=== PATIENT | male | born 1950 ===

== ENCOUNTER 2018-08-07 06:39 | Inpatient (IN) | payer OTHER, MEDICARE ==
--- NOTE | 2018-08-01 12:38 | GHP ---
DATE OF ADMISSION: 08/07/2018 DATE OF SURGERY: He will be an a.m. admission for surgery at [facility] on August 07, 2018. PROBLEM: Left hip arthritis. HISTORY OF PRESENT ILLNESS: The patient is a 68-year-old man admitted for a left total hip arthropla sty. He lives in [place], [place]. His left hip has been painful for the last couple of years. He occasionally has pain in the right hip. His activities are limited. He likes to ride a horse and h as not been able to do that in the past year. He occasionally uses ibuprofen. He has trouble puttin g on his shoes and socks on the left foot. He has had chiropractic treatments. He has not had any c ortisone injections. His evaluation shows severe degenerative arthritis of the left hip. He is admi tted for a left total hip arthroplasty. His activities and function are significantly limited. PAST MEDICAL HISTORY: Excellent general health. He takes allopurinol for gout. No history of heart disease, stents, DVT, hepatitis, MRSA staph infections, sleep apnea or bleeding problems. CURRENT MEDICATIONS: Allopurinol 100 mg per day. A Viagra like medication on a p.r.n. basis. ALLERGIES: Drug allergies: None. Metal allergy: None. Latex allergy: None. SOCIAL HISTORY: The patient is . He is retired. He does not smoke cigarettes and occasional ly drinks alcohol. He is in the process of moving from [place], [place] to [place]. FAMILY HISTORY: Noncontributory. PHYSICAL EXAMINATION: VITAL SIGNS: Height 6 feet 1 inch. Weight 170 pounds. BMI 22.4. EYES: Con junctivae and sclerae are clear. Pupils are round and reactive. MOUTH: Good oral hygiene. No loos e teeth. CHEST: Clear. HEART: Regular rhythm, no murmurs. EXTREMITIES: Pertinent findings limit ed to his left hip. He has full hip extension and 110 degrees of flexion. External rotation 30 degr ees. Internal rotation 0 degrees. Abduction 30 degrees. IMAGING: His films show advanced degenerative arthritis of the left hip. He has marked cartilage sp mine narrowing and subchondral sclerosis. IMPRESSION ON ADMISSION: 1. Left hip degenerative arthritis. 2. Treatment for gout. PLAN: He will undergo a left total hip arthroplasty. The surgery has been described to him, lyn monsalve the risks, complications, expectations, and recovery time. I have talked with him specifically ab out the risk of dislocation, leg length inequality, infection, and sciatic nerve injury. All his que stions have been answered, and he consents to surgery. /[id number]/MODL
[2018-08-07] MEDS ORDERED: POVIDONE-IODINE 20 ML in SODIUM CL IRRIG SOLUTION 500 ML IRR ONE (07:00)
[2018-08-07] MEDS ORDERED: TRANEXAMIC ACID 1,000 MG in NS 100 ML IV ONE (07:00)
[2018-08-07] MEDS ORDERED: ROPIVACAINE 0.2% 80 MG, EPINEPHrine 0.2 MG, KETOROLAC TROMETHAMINE 30 MG in SYRINGE 0 ML IU ONE (07:00)
[2018-08-07] MEDS ORDERED: TRANEXAMIC ACID 3,000 MG in NS (SYRINGE) 50 ML IRR ONE (07:00)
[2018-08-07] MEDS ORDERED: GABAPENTIN 300 MG CAP PO ONE (07:26)
[2018-08-07] MEDS ORDERED: ACETAMINOPHEN 325 MG TAB PO ONE (07:26)
[2018-08-07] MEDS ORDERED: LR 1,000 ML IV ONE (07:26)
[2018-08-07] MEDS ORDERED: ceFAZolin 2 GM/DEXTROSE 100 ML IV ONE (07:26)
[2018-08-07] MEDS ORDERED: FAMOTIDINE 20 MG TAB PO ONE (07:26)
[2018-08-07] MEDS ORDERED: LIDOCAINE 1% 2 ML INJ ID PRN (07:26)
[2018-08-07] MEDS ORDERED: DEXAMETHASONE 4 MG/ML VIAL IVP ONE (07:26)
[2018-08-07] MEDS ORDERED: ONDANSETRON 4 MG/2 ML VIAL IVP ONE (07:26)
[2018-08-07] MEDS ORDERED: ceFAZolin 1 GM/5 ML SYR ONE (08:00)
[2018-08-07] MEDS ORDERED: TRANEXAMIC ACID 3,000 MG/50 ML BAG IRR ONE (08:00)
[2018-08-07 08:02] LABS: PLATELET COUNT 262 10^3/uL (150-400)
[2018-08-07] MEDS ORDERED: PHENYLEPHRINE HCL 100 MCG/ML SYR ONE (08:36)
[2018-08-07] MEDS ORDERED: PROPOFOL/EMULSION 500 MG/50 ML BOTTLE IV ONE ×2 (08:36→11:20)
[2018-08-07] MEDS ORDERED: BUPIVACAINE/DEXTROSE 7.5MG/ML 2 ML SPINAL AMP SP ONE (08:36)
[2018-08-07] MEDS ORDERED: LIDOCAINE 2% 5 ML SDV ONE (08:36)
[2018-08-07] MEDS ORDERED: PHENYLEPHRINE 10 MG/ML SDV ONE (08:36)
[2018-08-07] MEDS ORDERED: fentaNYL 100 MCG/2 ML INJ ONE (08:36)
--- NOTE | 2018-08-07 09:32 | PDHPUP ---
History & Physical Update H&P update statement: This history and physical update is based on an assessment of the patient which was completed after admission or registration (within 24 hours), but prior to the surgery/procedure. H&P update: H&P reviewed & patient examined
[2018-08-07] MEDS ORDERED: MIDAZOLAM 2 MG/2 ML VIAL ONE (09:57)
[2018-08-07] MEDS ORDERED: MIDAZOLAM 2 MG/2 ML VIAL IVP ONE (09:58)
--- NOTE | 2018-08-07 09:58 | PDANEPAE ---
ANE History of Present Illness Left hip DJD, here for DAVID ANE Past Medical History - Cardiovascular History Hx Hypertension: No Hx Arrhythmias: No Hx Chest Pain: No Hx Coronary Artery / Peripheral Vascular Disease: No Hx CHF / Valvular Disease: No Hx Palpitations: No - Pulmonary History Hx COPD: No Hx Asthma/Reactive Airway Disease: No Hx Recent Upper Respiratory Infection: No Hx Oxygen in Use at Home: No Hx Sleep Apnea: No Sleep Apnea Screening Result - Last Documented: Negative - Neurologic History Hx Cerebrovascular Accident: No Hx Seizures: No Hx Dementia: No Neurologic History Comment: occasional numbness in hands - Endocrine History Hx Diabetes: No - Renal History Hx Renal Disorders: No - Liver History Hx Hepatic Disorders: No - Neurological & Psychiatric Hx Hx Neurological and Psychiatric Disorders: No - Cancer History Hx Cancer: No - Congenital Disorder History Hx Congenital Disorders: No - GI History Hx Gastrointestinal Disorders: No - Other Health History Other Health History: gout. bilateral hearing loss - Chronic Pain History Chronic Pain: Yes (left hip) - Surgical History Prior Surgeries: left knee scope, meninscus repair. cataract surgery. tonsillectomy. left ear surgery ANE Review of Systems Review of Systems: - Exercise capacity METS (RN): 5 METS ANE Patient History - Allergies Allergies/Adverse Reactions: No Known Allergies Allergy (Verified 08/06/18 12:47) - Home Medications Home Medications: Allopurinol [Allopurinol 100 MG (*)] 100 mg PO DAILY 07/31/18 [Last Taken 09:00] Ibuprofen [Motrin (*)] 400 mg PO DAILY PRN 07/31/18 [Last Taken 07/28/18] Sildenafil Citrate [Revatio 20 MG (*)] 20 mg PO AD PRN 07/31/18 [Last Taken ] - NPO status NPO Since - Liquids (Date): 08/06/18 NPO Since - Liquids (Time): 21:00 NPO Since - Solids (Date): 08/06/18 NPO Since - Solids (Time): 20:00 - Smoking Hx Smoking Status: Former smoker - Family Anes Hx Family Hx Anesthesia Complications: none ANE Labs/Vital Signs - Labs Result Diagrams: 08/07/18 07:50 - Vital Signs Blood Pressure: 159/90 Heart Rate: 54 Respiratory Rate: 16 O2 Sat (%): 96 Height: 185.42 cm Weight: 77.111 kg ANE Physical Exam - Airway Neck exam: FROM Mallampati Score: Class 1 Mouth exam: normal dental/mouth exam - Pulmonary Pulmonary: no respiratory distress - Cardiovascular Cardiovascular: regular rate and rhythym - ASA Status ASA Status: II ANE Anesthesia Plan Anesthesia Plan: MAC, spinal Total IV Anesthesia: Yes
[2018-08-07] MEDS ORDERED: HYDROmorphONE/DILAUDID 2 MG/ML INJ IVP PRN (10:47)
[2018-08-07] MEDS ORDERED: NALOXONE HCL 0.4 MG/ML INJ IVP PRN (10:47)
[2018-08-07] MEDS ORDERED: LR 500 ML IV PRN (10:47)
[2018-08-07] MEDS ORDERED: fentaNYL 100 MCG/2 ML INJ IVP PRN (10:47)
[2018-08-07] MEDS ORDERED: PROMETHAZINE HCL 25 MG/ML INJ IVP PRN ×2 (10:47→12:10)
[2018-08-07] MEDS ORDERED: MEPERIDINE 25 MG/0.5 ML AMP IVP PRN (10:47)
[2018-08-07] MEDS ORDERED: oxyCODONE IR 5 MG TAB PO PRN ×2 (10:47→12:10)
--- NOTE | 2018-08-07 11:51 | POSTOPPROG ---
Post Op Note Date of Operation: 08/07/18 Surgeon: Jay Okeefe Oleo Hasher And Renderer: Domingo Anesthesiologist: Amaury Anesthesia: IV Sedation, Spinal Post-op Diagnosis: Left hip severe degenerative arthritis Procedure: Left total hip arthroplasty Inf/Abcess present in the surg proc area at time of surgery?: No EBL: 100-500
[2018-08-07] MEDS ORDERED: LACTULOSE 20 GM/30 ML UDCUP PO PRN (12:10)
[2018-08-07] MEDS ORDERED: ONDANSETRON DISINTEGRATING 4 MG TAB PO PRN (12:10)
[2018-08-07] MEDS ORDERED: TEMAZEPAM 15 MG CAP PO PRN (12:10)
[2018-08-07] MEDS ORDERED: PROMETHAZINE HCL 25 MG SUPPR PR PRN (12:10)
[2018-08-07] MEDS ORDERED: MAGNESIUM HYDROXIDE 30 ML UDCUP PO PRN (12:10)
[2018-08-07] MEDS ORDERED: METOCLOPRAMIDE 10 MG/2 ML VIAL IVP PRN (12:10)
[2018-08-07] MEDS ORDERED: POLYETHYLENE GLYCOL 3350 17 GM PKT PO PRN (12:10)
[2018-08-07] MEDS ORDERED: diphenhydrAMINE 25 MG CAP PO PRN (12:10)
[2018-08-07] MEDS ORDERED: DIPHENOXYLATE/ATROPINE LOMOTIL 1 TAB PO PRN (12:10)
[2018-08-07] MEDS ORDERED: NS 500 ML IV PRN (12:10)
[2018-08-07] MEDS ORDERED: BISACODYL 10 MG SUPP PR PRN (12:10)
[2018-08-07] MEDS ORDERED: ONDANSETRON 4 MG/2 ML VIAL IVP PRN (12:10)
[2018-08-07] MEDS ORDERED: traMADol 50 MG TAB PO PRN (12:10)
[2018-08-07] MEDS ORDERED: CYCLOBENZAPRINE 10 MG TAB PO PRN (12:10)
[2018-08-07] MEDS ORDERED: LR 1,000 ML IV SCH (12:30)
--- NOTE | 2018-08-07 12:38 | PDMN ---
Medical Necessity Medical necessity: Pt meets IP criteria as of 08/07/2018 per and [facility] S-560 ( total hip arthroplasty); Medicare IP only procedure.
--- NOTE | 2018-08-07 13:28 | GOP ---
DATE OF OPERATION: 08/07/2018 SURGEON: Jay Okeefe MD QUILLER HAND: Bravo Mcneal and Michael Navarro. ANESTHESIA: A combination of Marcaine, spinal, and IV sedation. ANESTHESIOLOGIST: Dr. Alicia Rebolledo. PREOPERATIVE DIAGNOSIS: Left hip severe degenerative arthritis. POSTOPERATIVE DIAGNOSIS: Left hip severe degenerative arthritis. PROCEDURE PERFORMED: 08/07/2018, left total hip arthroplasty, ceramic femoral head on highly cross-l inked polyethylene cup liner. FINDINGS: ESTIMATED BLOOD LOSS: About 400 mL. DESCRIPTION OF PROCEDURE: The patient was given 2 g of IV Ancef preoperatively within 60 minutes of surgery. He was also given 1000 mg of IV tranexamic acid. He was placed on the operating room table and given spinal anesthesia with Marcaine by Dr. Rebolledo. He was then placed supine and given IV yusuf tion. A Tubbs catheter was not used. He wore a PARI stocking and SCD on the nonoperative leg. He wa s rolled to the right lateral decubitus position. The position was secured with the pegboard table a ttachment. An axillary roll was used, and all pressure points were carefully padded. I was careful to lock his pelvis in a vertical position. His perineum was isolated with plastic adhesive drapes. The left hip and left lower extremity were prepped with ChloraPrep. They were draped free using ster ile sheets, towels, and Ioban plastic drapes. The World Health Organization time-out was performed to verify the correct surgical side and site and the correct patient identity. The Zeigler time-out was also performed. I made a 5-inch straight oblique posterolateral hip skin incision. Subcutaneous tissues were sharply divided, and hemostasis was obtained using electrocautery. He was very thin and had a very thin lay er of subcutaneous fat. The fascia rolando was identified and split along the axis of its fibers. I cu rved posteriorly and proximally, and split the fascia of the gluteus elli and bluntly split the mu scle fibers in line with their orientation. The Charnley self-retaining retractor was inserted. His sciatic nerve was located, partially exposed, and protected throughout the procedure. The external rotators and the posterior hip capsule were divided as separate layers at the base of the femoral nec k, tagged, and reflected posteriorly. A smooth 8-inch Steinmann pin was inserted vertically into the ilium, superior to the acetabulum. An 8-inch drill bit was inserted vertically into the greater tro chanter and parallel to the first pin. The distance between the 2 was measured for leg length refere nce. His femoral head was dislocated posteriorly. Severe degenerative changes were present. The fe moral neck was osteotomized at the appropriate level and inclination. I was careful to preserve all the posterior capsule and most of the anterior capsule. The remnant of his labrum was excised. The femur was prepared first. This allowed me to blind escort the amount of natural femoral neck anteversio n. This, in turn, allowed me to later determine the correct amount of cup anteversion. He had appro ximately 10 degrees of natural femoral neck anteversion. The canal was opened 1st laterally with a b ox chisel. I then hand broached sequentially up to size 8. I used the 8 Accolade II high offset bro ach as a trial stem. I was careful to lateralize adequately. Appropriate retractors were inserted to expose the acetabulum. The acetabulum was reamed sequentiall y up to 55 mm. I selected the 56 mm Arlington Tritanium Trident II cluster hole hemispherical shell. This was tapped securely into place in the proper degree of inclination anteversion. I used the gonzales sverse acetabular ligament and other acetabular bony landmarks to help me determine proper cup orient ation. I performed a series of trial reductions to determine length and stability. I took an intraoperative cross-table AP pelvis. This demonstrated proper sizing of the acetabular and femoral component. I thought the acetabular component was a little bit too horizontal. I needed to add a little length to make his leg lengths equal. The 10 degree lip Arlington X3 highly cross-linked polyethylene liner was inserted and tapped securely into place. Prior to inserting the liner I did readjust the position of the acetabular shell to make it a little more vertical. The Arlington Accolade II stem in a high offset in size 8 was tapped secur gladis into place and was a very tight fit. I did 1 final trial reduction and confirmed that the +2.5 m m neck length with a 36 mm head was the proper combination. He was short preoperatively, and I was i ntentionally lengthening him. The Chidi Biolox Delta ceramic head with an outside diameter of 36 m m and a neck length of +2.5 mm was tapped securely onto the clean trunnion. The acetabulum was irrig ated, cleaned, and the hip was reduced 1 final time. He had excellent anterior and posterior stabili ty and appropriate lengthening. 40 mL of the joint anesthetic cocktail were injected into the capsule, the deep musculature, and the subcutaneous tissues around the skin edges. The joint was thoroughly irrigated 1 final time with a d ilute Betadine solution. 50 cc of tranexamic acid solution were irrigated into the wound and left in place. His sciatic nerve was reinspected and looked unharmed. The external rotators and the cone picker ior hip capsule were repaired in separate layers with #2 FiberWire sutures through drill holes in the greater trochanter. This provided a strong posterior capsular and external rotator repair. The fas damien rolando was closed first with 2 qpopbo-xy-evsra #2 FiberWire sutures followed by a running #2 barbed Ethicon Stratafix PDO suture. Subcutaneous tissues were closed with a running 0 barbed Ethicon Stra tafix Monoderm suture. The skin was closed with a running 3-0 barbed Ethicon Stratafix Monoderm subc uticular suture. The skin edges were reapproximated and sealed with Dermabond glue. The wound was c overed with a large Mepilex waterproof dressing. The sacral hyperflexed dressing was also applied. A long-leg PARI stocking and SCD were applied to his left lower extremity. He wore a stocking and SCD on the opposite leg during the procedure. An abduction pillow was placed between his knees. He was awakened from anesthesia and rolled to the supine position on his gurney. He was taken to PACU in s atisfactory condition. There were no recognized intraoperative complications. COUNTS: The sponge and needle count were correct on 2 occasions. I used a Chidi Tritanium Trident II hemispherical cluster hole shell with an outside diameter of 56 mm. The liner was a Arlington X3 0-degree highly cross-linked liner with an inside diameter of 36 mm. The femoral component was a high offset Accolade II stem in a size 8 and press-fit. The femoral he ad was a [place] Biolox Delta ceramic head with a +2.5 mm neck length and a 36 mm outside diameter. Bravo Mcneal and Michael Navarro acted as surgical assistants. Their assistance was a medical necess ity for safe completion of the procedure. /[id number]/MODL
[2018-08-07] MEDS: ACETAMINOPHEN 325 MG TAB PO SCH (17:22)
[2018-08-07] MEDS: KETOROLAC 15 MG/1 ML SDV IVP SCH (17:22)
[2018-08-07] MEDS: ceFAZolin 2 GM/DEXTROSE 100 ML IV SCH (17:23)
[2018-08-07] MEDS: FAMOTIDINE 20 MG TAB PO SCH (20:14)
[2018-08-07] MEDS: ASPIRIN 325 MG TAB PO SCH (20:14)
[2018-08-07] MEDS: SENNOSIDES/DOCUSATE SODIUM TAB PO SCH (20:14)
[2018-08-08] MEDS: KETOROLAC 15 MG/1 ML SDV IVP SCH ×3 (00:57→11:26)
[2018-08-08] MEDS: ACETAMINOPHEN 325 MG TAB PO SCH ×3 (00:57→11:26)
[2018-08-08] MEDS: ceFAZolin 2 GM/DEXTROSE 100 ML IV SCH (01:00)
--- NOTE | 2018-08-08 07:27 | SOAPPROG ---
SOAP Progress Note Assessment/Plan: Assessment: Afebrile. Awake and alert. He has been up and walking in the room. Mild pain so far. His dressing is dry. Sciatic nerve intact. H&H are good. Postop films look excellent. Plan: Continue physical therapy today for walking and stairs. Discharge later today. He will go to outpatient physical therapy in [place], [place]. 08/08/18 07:26 Objective: Vital Signs Temp Pulse Resp BP Pulse Ox 36.3 C 56 L 14 119/74 90 L 08/08/18 04:00 08/08/18 04:00 08/08/18 04:00 08/08/18 04:00 08/08/18 04:00 Laboratory Results 08/08/18 05:05 08/07/18 08/08/18 08/09/18 05:59 05:59 05:59 Intake Total 1520 Output Total 1325 Balance 195 ICD10 Worksheet Patient Problems: Problems Problem Status Onset Osteoarthritis of left hip Acute
--- NOTE | 2018-08-08 07:48 | GDS ---
ADMISSION DIAGNOSIS: Left hip severe degenerative arthritis. DISCHARGE DIAGNOSIS: Left hip severe degenerative arthritis. OPERATION PERFORMED: 08/07/2018, a left total hip arthroplasty. POSTOPERATIVE COMPLICATIONS: None. CONDITION ON DISCHARGE: Improved. DESCRIPTION OF HOSPITAL COURSE: The patient was admitted to the hospital on the morning of surgery. His hemoglobin and hematocrit were 17.7, and 51.9. The same day, under a combination of Marcaine, s omer anesthesia and IV sedation, he underwent a left total hip arthroplasty. Postoperatively, he wa s treated with multimodal DVT prophylaxis, including aspirin. On the first postoperative day his hem oglobin and hematocrit were 14.0, and 40.9. He was seen by Physical Therapy and made rapid progress with ambulation and stairs. By the time of discharge, he was afebrile, his wound was clean and dry, and he was independent, walking with a walker. The patient is discharged to his home in [place], [place]. He will go to Outpatient Physical Therap y in [facility]. He may progress to full weightbearing on the left as tolerated. Use T.E.D. stockings for 1 week. Abduction pillow in bed for 3 weeks. Continue aspirin 325 mg p.o. daily for 21 days. Jena brito has prescriptions for oxycodone, tramadol and Celebrex for pain control. I will see him back in [facility] office in about 4 weeks. He is in the process of moving to [place], [place]. If there are any pr oblems, he is to call me at the office. /[id number]/MODL
[2018-08-08 08:14] VITALS: BP 135/88
[2018-08-08] MEDS: FAMOTIDINE 20 MG TAB PO SCH (08:39)
[2018-08-08] MEDS: ASPIRIN 325 MG TAB PO SCH (08:40)
[2018-08-08] MEDS: SENNOSIDES/DOCUSATE SODIUM TAB PO SCH (08:40)
[2018-08-08] MEDS ORDERED: ALLOPURINOL 100 MG TAB PO SCH (09:00)
[2018-08-08] MEDS ORDERED: FERROUS SULFATE 140 MG TAB.ER PO SCH (09:00)
--- NOTE | 2018-08-08 10:15 | ASMTLACE ---
LACE Length of stay for Answers: 2 days current admission Acuity / Level of Answers: Yes Care: Did the patient have an inpatient admission? Comorbidities - select Answers: Opioid dependence all that apply / Chronic pain # of Emergency department Answers: 0 visits in the last 6 months Score: 9 Date Signed: 08/08/2018 10:15 AM Electronically Signed By:RUSH Shabazz
--- NOTE | 2018-08-08 10:16 | ASMTCMCOM ---
CM Note CM Note Notes: Pt had planned OA of hip. PT rec home/outpatient. Pt to go to outpatient PT per MD rec. No CM d/c needs identified. Date Signed: 08/08/2018 10:16 AM Electronically Signed By:RUSH Shabazz
--- NOTE | 2018-08-09 12:54 | POSTANESTH ---
Post Anesthetic Evaluation Cardiovascular Status: Normal, Stable Respiratory Status: Normal, Stable Level of Consciousness/Mental Status: Can Participate in Eval Pain Control: Adequate, Prn Tx Ordered Nausea/Vomiting Control: Adequate, Prn Tx Ordered Complications Possibly Related to Anesthesia: None Noted (entered note on incorrect patient and am trransferring the info to the appropriate chart today)
== END 2018-08-08 12:12 | disposition home or self-care (01) | DRG 470 ==
LOC: F3N 06:39
PROVIDERS: ADMIT Orthopaedic Surgery; ATTEND Orthopaedic Surgery
PROC: 0SRB04Z Replacement of Left Hip Joint with Ceramic on Polyethylene Synthetic Substitute, Open Approach (ICD-10-PCS; principal; 2018-08-07 09:15)
DX: M16.12 Unilateral primary osteoarthritis, left hip (principal); M10.9 Gout, unspecified
CPT/HCPCS: 97110-GP; 97116-GP; 97161-GP; 97166-GO; 97535-GO; C1713; G8978-GP-CK; G8979-GP-CJ; G8987-GO-CI; G8988-GO-CI; G8989-GO-CI; J0171; J0690; J1100; J1885; J2250; J2370; J2405; J2704; J2795; J3010